=== PATIENT | male | born 1955 | race Hispanic/Latino ===

== ENCOUNTER 2018-08-04 00:29 | Emergency (ER) | payer SELFPAY ==
[2018-08-04 01:05] LABS: EOSINOPHILS % (AUTO) 0.7 % (0.0-8.0); HEMATOCRIT 39.8 % (42-54); LYMPHOCYTES % (AUTO) 12.9 % (21.0-51.0); MEAN CORPUSCULAR HEMOGLOBIN 33.3 pg (27.0-33.0); MEAN CORPUSCULAR HGB CONC 34.1 g/dL (32.0-36.0); MEAN CORPUSCULAR VOLUME 97.7 fL (79-99); MONOCYTES % (AUTO) 10.8 % (3.0-13.0); NEUTROPHILS % (AUTO) 74.6 % (40.0-77.0); PLATELET COUNT (AUTO) 180 K/uL (130-400); RED BLOOD CELL COUNT(AUTO) 4.08 MIL/uL (4.50-6.20); RED CELL DISTRIBUTION WIDTH 13.2 % (11.0-15.5)
[2018-08-04 01:24] LABS: CREATINE KINASE, TOTAL 29 U/L (21-232); MYOGLOBIN 25 ng/mL (10-92); TROPONIN I < 0.04 ng/mL (0.00-0.06)
[2018-08-04 01:33] LABS: ALBUMIN 2.5 g/dL (3.5-5.0); BILIRUBIN,TOTAL 0.5 mg/dL (0.2-1.0); POTASSIUM 3.7 mmol/L (3.5-5.1); TOTAL PROTEIN, SERUM 7.7 g/dL (6.0-8.3)
[2018-08-04] MEDS ORDERED: DIATR MEGLU/DIATRIZOATE SODIUM 30 ML BOTTLE ONE (01:53)
[2018-08-04] MEDS ORDERED: IOHEXOL-350 75 ML VIAL IV ONE (03:41)
== END 2018-08-04 05:40 | disposition home or self-care (01) ==
LOC: EDH 00:29
DX: R10.13 Epigastric pain (principal); R10.12 Left upper quadrant pain; R53.81 Other malaise; R53.83 Other fatigue; Z98.890 Other specified postprocedural states; Z72.0 Tobacco use
CPT/HCPCS: 36415; 71046; 74177; 80053; 82550; 83690; 83874; 84484; 85025; 93005; 99285; Q9963; Q9967